=== PATIENT | male | born 1995 | race Caucasian/White ===

== ENCOUNTER 2016-05-11 19:14 | Emergency (ER) | payer OTHER ==
[2016-05-11] MEDS ORDERED: AZITHROMYCIN 250 MG TABLET PO STA (20:10)
[2016-05-11] MEDS ORDERED: DEXAMETHASONE 10 MG/ML VIAL PO STA (20:10)
[2016-05-11] MEDS ORDERED: CHERRY SYRUP 10 ML UDC PO ONE (20:13)
[2016-05-11] MEDS ORDERED: DEXAMETHASONE 10 MG/ML VIAL ONE (20:13)
[2016-05-11] MEDS ORDERED: AZITHROMYCIN 250 MG TABLET PO ONE (20:13)
== END 2016-05-11 20:28 | disposition home or self-care (01) ==
DX: J06.9 Acute upper respiratory infection, unspecified (principal); B97.89 Other viral agents as the cause of diseases classified elsewhere; H66.001 Acute suppurative otitis media without spontaneous rupture of ear drum, right ear
CPT/HCPCS: 99283; A9270